=== PATIENT | female | born 1985 | race African-American/Black ===

== ENCOUNTER 2021-05-10 07:20 | Inpatient (IN) | payer BC ==
[2021-05-10 08:39] LABS: BASO % 0.4 % (0-2.0); EOS % 2.7 % (0-4.5); HEMATOCRIT 35.3 % (32.4-45.2); HEMOGLOBIN 11.9 GM/dL (10.7-15.3); LYMPH % 22.1 % (8-40); MCH 28.6 pg (25.7-33.7); MCHC 33.7 g/dl (32.0-36.0); MEAN CELL VOLUME 84.9 fl (80-96); MEAN PLT VOLUME 9.4 fl (7.5-11.1); MONO % 7.5 % (3.8-10.2); NEUT % 67.3 % (42.8-82.8); PLATELET COUNT 217 10^3/uL (134-434); RBC 4.15 M/mm3 (3.60-5.2); RDW 15.2 % (11.6-15.6); WHITE BLOOD COUNT 8.5 K/mm3 (4.0-10.0)
[2021-05-10 08:44] VITALS: BMI 30.2
[2021-05-10 08:46] LABS: INR 0.82 (0.83-1.09); PROTHROMBIN TIME (PATIENT) 10.1 SEC (9.7-13.0)
[2021-05-10 08:49] LABS: ACTIVATED PTT 24.6 SECONDS (25.2-36.5)
[2021-05-10] MEDS ORDERED: BUTORPHANOL TARTRATE 1 MG/ML VIAL IVPB PRN ×2 (08:54)
[2021-05-10 09:01] LABS: CREATININE 0.4 mg/dL (0.55-1.3)
[2021-05-10] MEDS ORDERED: DINOPROSTONE 10 MG VAGINAL SUPPOSITORY VG ONE (09:15)
[2021-05-10] MEDS ORDERED: BENZOCAINE 20% 57 GM BOTTLE TP PRN (11:24)
[2021-05-10] MEDS ORDERED: METHYLERGONOVINE MALEATE 0.2 MG/1 ML AMP IM PRN (11:24)
[2021-05-10] MEDS ORDERED: BENZOCAINE 28 GM HEMORRHOIDAL OINTMENT TP PRN (11:24)
[2021-05-10] MEDS ORDERED: SIMETHICONE 80 MG TAB.CHEW (FP) PO PRN (11:24)
[2021-05-10] MEDS ORDERED: IBUPROFEN 800 MG/8 ML IJ IVPB PRN (11:24)
[2021-05-10] MEDS ORDERED: oxyCODONE HCL 5 MG TABLET PO PRN (11:24)
[2021-05-10] MEDS ORDERED: ACETAMINOPHEN 325 MG TABLET (FP) PO PRN (11:24)
[2021-05-10] MEDS ORDERED: IBUPROFEN 600 MG TABLET (FP) PO PRN (11:24)
[2021-05-10] MEDS ORDERED: OXYTOCIN 20 UNITS in 0.9% NS 20 UNIT/1,000 ML INFUS.BAG IV SCH (11:30)
[2021-05-10 13:34] LABS: SYPHILIS W/ RPR CONF NON-REACTIVE (NONREACTIVE)
[2021-05-10 14:03] LABS: HIV INTERPRETATION NEGATIVE (NEGATIVE)
[2021-05-10] MEDS: ELECTROLYTE-148 SOLN 1,000 ML IV SCH ×2 (17:54→22:50)
[2021-05-10] MEDS ORDERED: CEFAZOLIN 1 GM/D5W 1 GM/50 ML BAG IVPB SCH (18:00)
[2021-05-10] MEDS ORDERED: OXYTOCIN 30 UNITS in 0.9% NS 30 UNIT/500 ML INFUS.BAG IVPB SCH (22:00)
[2021-05-10] MEDS ORDERED: FERROUS SO4 325 MG TABLET (FP) PO SCH (22:00)
[2021-05-10] MEDS ORDERED: OXYTOCIN 30 UNITS in 0.9% NS 30 UNIT/500 ML INFUS.BAG IVPB ONE (22:37)
[2021-05-11] MEDS: ELECTROLYTE-148 SOLN 1,000 ML IV SCH ×2 (04:15→11:54)
[2021-05-11] MEDS ORDERED: PRENATAL VITAMINS W/ FOLIC ACID TABLET (FP) PO SCH (10:00)
[2021-05-11] MEDS ORDERED: PCA PUMP NR ONE (10:46)
[2021-05-11] MEDS ORDERED: FENTANYL/BUPIVACAINE/NS/PF - PCEA - 50 ML DISP.SYRIN EP ONE ×2 (10:47→15:25)
[2021-05-11] MEDS: FENTANYL/BUPIVACAINE/NS/PF - PCEA - 50 ML DISP.SYRIN EP SCH ×2 (11:15→15:30)
[2021-05-11] MEDS ORDERED: oxyCODONE HCL 5 MG TABLET PO PRN (11:24)
[2021-05-11] MEDS ORDERED: BISACODYL 10 MG SUPP.RECT RC PRN ×2 (11:24→20:10)
[2021-05-11] MEDS ORDERED: NALOXONE HCL 0.4 MG/ML VIAL IVPUSH PRN (11:30)
[2021-05-11] MEDS ORDERED: BUPIVACAINE HCL/PF 0.25% (2.5MG/ML) 10 ML VIAL ONE (16:03)
[2021-05-11] MEDS ORDERED: LIDOCAINE HCL 1% PRESERVATIVE FREE - 30ML VIAL ONE (16:36)
[2021-05-11] MEDS ORDERED: OXYTOCIN 20 UNITS in 0.9% NS 20 UNIT/1,000 ML INFUS.BAG IV ONE ×2 (16:37→23:11)
[2021-05-11] MEDS ORDERED: ACETAMINOPHEN 325 MG TABLET (FP) PO PRN (20:10)
[2021-05-11] MEDS ORDERED: BENZOCAINE 20% 57 GM BOTTLE TP PRN (20:10)
[2021-05-11] MEDS ORDERED: BENZOCAINE 28 GM HEMORRHOIDAL OINTMENT TP PRN (20:10)
[2021-05-11] MEDS ORDERED: METHYLERGONOVINE MALEATE 0.2 MG/1 ML AMP IM PRN (20:10)
[2021-05-11] MEDS ORDERED: WITCH HAZEL 50% (TUCKS) 40 PAD/JAR PAD TP PRN (20:10)
[2021-05-11] MEDS ORDERED: IBUPROFEN 600 MG TABLET (FP) PO PRN (20:10)
[2021-05-11] MEDS ORDERED: OXYTOCIN 20 UNITS in 0.9% NS 20 UNIT/1,000 ML INFUS.BAG IV SCH (20:15)
[2021-05-12 06:50] LABS: BASO % 0.6 % (0-2.0); EOS % 0.2 % (0-4.5); HEMATOCRIT 34.5 % (32.4-45.2); HEMOGLOBIN 11.3 GM/dL (10.7-15.3); LYMPH % 9.8 % (8-40); MCH 28.3 pg (25.7-33.7); MCHC 32.7 g/dl (32.0-36.0); MEAN CELL VOLUME 86.3 fl (80-96); MEAN PLT VOLUME 10.5 fl (7.5-11.1); MONO % 6.6 % (3.8-10.2); NEUT % 82.8 % (42.8-82.8); PLATELET COUNT 195 10^3/uL (134-434); RBC 3.99 M/mm3 (3.60-5.2); RDW 15.2 % (11.6-15.6); WHITE BLOOD COUNT 18.4 K/mm3 (4.0-10.0)
[2021-05-12] MEDS: FERROUS SO4 325 MG TABLET (FP) PO SCH ×3 (09:20→17:28)
[2021-05-12] MEDS: PRENATAL VITAMINS W/ FOLIC ACID TABLET (FP) PO SCH (09:20)
[2021-05-12] MEDS ORDERED: SENNOSIDES/DOCUSATE COMBO (SENNA PLUS) TABLET (UD) PO PRN (22:00)
[2021-05-12] MEDS: FENTANYL/BUPIVACAINE/NS/PF - PCEA - 50 ML DISP.SYRIN EP SCH (22:41)
[2021-05-12 22:52] VITALS: TEMP 98.6
[2021-05-13] MEDS: FERROUS SO4 325 MG TABLET (FP) PO SCH ×2 (08:14→12:55)
[2021-05-13] MEDS: PRENATAL VITAMINS W/ FOLIC ACID TABLET (FP) PO SCH (09:08)
[2021-05-13 11:26] VITALS: BP 114/70; PULSE 88
== END 2021-05-13 13:20 | disposition home or self-care (01) | DRG 807 ==
LOC: JLDR 07:20 → J3W 05-11 23:22
PROVIDERS: ADMIT Obstetrics & Gynecology; ATTEND Obstetrics & Gynecology
PROC: 3E0P7VZ Introduction of Hormone into Female Reproductive, Via Natural or Artificial Opening (ICD-10-PCS; principal; 2021-05-10)
PROC: 10E0XZZ Delivery of Products of Conception, External Approach (ICD-10-PCS; 2021-05-11)
PROC: 10907ZC Drainage of Amniotic Fluid, Therapeutic from Products of Conception, Via Natural or Artificial Opening (ICD-10-PCS; 2021-05-11)
PROC: 0W8NXZZ Division of Female Perineum, External Approach (ICD-10-PCS; 2021-05-11)
DX: O48.0 Post-term pregnancy (principal); Z37.0 Single live birth; O69.81X0 Labor and delivery complicated by cord around neck, without compression, not applicable or unspecified; Z3A.40 40 weeks gestation of pregnancy
CPT/HCPCS: 36415; 59409; 71045-TC-FY; 80048; 85025; 85610; 85730; 86780; 86850; 86900; 86901; 87389

== ENCOUNTER 2024-02-09 06:10 | Inpatient (IN) | payer BC ==
[2024-02-09] MEDS ORDERED: LABETALOL HCL 200 MG TABLET (FP) ONE (06:52)
[2024-02-09] MEDS: LABETALOL HCL 200 MG TABLET (FP) PO PRN (06:53)
[2024-02-09] MEDS: ELECTROLYTE-148 SOLN 1,000 ML IV SCH (07:15)
[2024-02-09 08:02] LABS: BASO % 1.6 % (0-2.0); EOS % 1.1 % (0-4.5); HEMATOCRIT 38.1 % (32.4-45.2); HEMOGLOBIN 12.6 GM/dL (10.7-15.3); LYMPH % 20.6 % (8-40); MCH 28.4 pg (25.7-33.7); MCHC 33.1 g/dl (32.0-36.0); MEAN CELL VOLUME 85.7 fl (80-96); MEAN PLT VOLUME 9.4 fl (7.5-11.1); MONO % 7.6 % (3.8-10.2); NEUT % 69.1 % (42.8-82.8); PLATELET COUNT 249 10^3/uL (134-434); RBC 4.45 M/mm3 (3.60-5.2); RDW 14.3 % (11.6-15.6); WHITE BLOOD COUNT 8.9 K/mm3 (4.0-10.0)
[2024-02-09 08:09] LABS: ACTIVATED PTT 29.3 SECONDS (25.2-36.5); INR 0.85 (0.83-1.09); PROTHROMBIN TIME (PATIENT) 9.6 SEC (9.7-13.0)
[2024-02-09] MEDS ORDERED: NALOXONE HCL 0.4 MG/ML VIAL IVPUSH PRN (08:12)
[2024-02-09] MEDS ORDERED: FENTANYL/BUPIVACAINE/NS/PF - PCEA - 50 ML DISP.SYRIN EP ONE (08:14)
[2024-02-09] MEDS ORDERED: BUPIVACAINE HCL/PF 0.25% (2.5MG/ML) 10 ML VIAL ONE (08:19)
[2024-02-09 08:27] LABS: POTASSIUM 3.8 mmol/L (3.5-5.1)
[2024-02-09 08:30] LABS: CALCIUM 9.5 mg/dL (8.5-10.1)
[2024-02-09] MEDS: FENTANYL/BUPIVACAINE/NS/PF - PCEA - 50 ML DISP.SYRIN EP SCH (08:30)
[2024-02-09 08:31] LABS: BLOOD UREA NITROGEN 6.2 mg/dL (7-18)
[2024-02-09 08:34] LABS: CREATININE 0.3 mg/dL (0.55-1.3)
[2024-02-09] MEDS ORDERED: LIDO 2%/EPI 1:200000 PRESRVFRE (20 ML SDVIAL) ONE (09:03)
[2024-02-09] MEDS ORDERED: FENTANYL CITRATE/PF 50 MCG/ML VIAL ONE (09:03)
[2024-02-09 09:08] LABS: HIV INTERPRETATION NEGATIVE (NEGATIVE)
[2024-02-09 09:16] VITALS: BMI 32.3
[2024-02-09] MEDS ORDERED: OXYTOCIN 30 UNITS in 0.9% NS 30 UNIT/500 ML INFUS.BAG IVPB ONE (09:25)
[2024-02-09] MEDS: OXYTOCIN 30 UNITS in 0.9% NS 30 UNIT/500 ML INFUS.BAG IVPB SCH ×2 (09:30→12:28)
[2024-02-09] MEDS ORDERED: OXYTOCIN 20 UNITS in 0.9% NS 20 UNIT/1,000 ML INFUS.BAG IV ONE (12:31)
[2024-02-09] MEDS ORDERED: LIDOCAINE HCL 1% PRESERVATIVE FREE - 30ML VIAL ONE (12:58)
[2024-02-09] MEDS: OXYTOCIN 20 UNITS in 0.9% NS 20 UNIT/1,000 ML INFUS.BAG IV SCH ×2 (13:05→22:51)
[2024-02-09] MEDS ORDERED: oxyCODONE HCL 5 MG TABLET PO PRN ×2 (13:33→20:41)
[2024-02-09] MEDS ORDERED: WITCH HAZEL 50% (TUCKS) 40 PAD/JAR PAD TP PRN (13:33)
[2024-02-09] MEDS ORDERED: IBUPROFEN 600 MG TABLET (FP) PO PRN (13:33)
[2024-02-09] MEDS ORDERED: BISACODYL 10 MG SUPP.RECT RC PRN ×2 (13:33→20:41)
[2024-02-09] MEDS ORDERED: BENZOCAINE 20% 57 GM BOTTLE TP PRN (13:33)
[2024-02-09] MEDS ORDERED: ACETAMINOPHEN 325 MG TABLET (FP) PO PRN (13:33)
[2024-02-09] MEDS ORDERED: BENZOCAINE 28 GM HEMORRHOIDAL OINTMENT TP PRN (13:33)
[2024-02-09 13:38] LABS: CORD HCO3 25.2 mmHg (20-29); CORD PCO2 62.3 mmHg (30-78); CORD pH 7.225 (7.14-7.44)
[2024-02-09 13:39] LABS: CORD BASE EXCESS -2.7 mmol/L (0-2); CORD HCO3 22.7 mmHg (20-29); CORD PCO2 41.5 mmHg (30-78); CORD pH 7.356 (7.14-7.44)
[2024-02-09] MEDS: METHYLERGONOVINE MALEATE 0.2 MG/1 ML AMP IM PRN (14:15)
[2024-02-09] MEDS ORDERED: TRANEXAMIC ACID 1000 MG/10 ML VIAL ONE (14:50)
[2024-02-09] MEDS: TRANEXAMIC ACID 1000 MG/10 ML VIAL IVPUSH ONE (14:56)
[2024-02-09] MEDS ORDERED: MISOPROSTOL 200 MCG TABLET ONE (15:05)
[2024-02-09] MEDS: MISOPROSTOL 200 MCG TABLET PR ONE (15:10)
[2024-02-09] MEDS ORDERED: ONDANSETRON 4 MG/2 ML VIAL IVPB PRN (15:26)
[2024-02-09 15:52] LABS: BASO % 0.3 % (0-2.0); EOS % 0.2 % (0-4.5); HEMATOCRIT 35.6 % (32.4-45.2); HEMOGLOBIN 11.3 GM/dL (10.7-15.3); LYMPH % 13.1 % (8-40); MCH 27.4 pg (25.7-33.7); MCHC 31.8 g/dl (32.0-36.0); MEAN CELL VOLUME 86.1 fl (80-96); MEAN PLT VOLUME 9.6 fl (7.5-11.1); MONO % 5.4 % (3.8-10.2); PLATELET COUNT 251 10^3/uL (134-434); RBC 4.13 M/mm3 (3.60-5.2); RDW 14.3 % (11.6-15.6); WHITE BLOOD COUNT 12.4 K/mm3 (4.0-10.0)
[2024-02-09] MEDS ORDERED: ACETAMINOPHEN INJECTION 100 ML IVPB ONE (17:14)
[2024-02-09] MEDS: ACETAMINOPHEN 1000 MG/100 ML BAG IVPB PRN (17:15)
[2024-02-09] MEDS ORDERED: FERROUS SO4 325 MG TABLET (FP) PO SCH (17:30)
[2024-02-09] MEDS: LABETALOL HCL 200 MG TABLET (FP) PO ONE (19:45)
[2024-02-09] MEDS ORDERED: METHYLERGONOVINE MALEATE 0.2 MG/1 ML AMP IM PRN (20:41)
[2024-02-09 22:45] LABS: BASO % 0.1 % (0-2.0); EOS % 0.8 % (0-4.5); HEMATOCRIT 32.6 % (32.4-45.2); HEMOGLOBIN 10.8 GM/dL (10.7-15.3); MCH 28.3 pg (25.7-33.7); MCHC 33.2 g/dl (32.0-36.0); MEAN CELL VOLUME 85.5 fl (80-96); MEAN PLT VOLUME 8.6 fl (7.5-11.1); MONO % 8.3 % (3.8-10.2); NEUT % 73.8 % (42.8-82.8); PLATELET COUNT 213 10^3/uL (134-434); RBC 3.82 M/mm3 (3.60-5.2); RDW 14.1 % (11.6-15.6); WHITE BLOOD COUNT 15.1 K/mm3 (4.0-10.0)
[2024-02-10 02:07] VITALS: RESP 18
[2024-02-10 07:30] LABS: BASO % 0.3 % (0-2.0); EOS % 1.1 % (0-4.5); HEMOGLOBIN 10.3 GM/dL (10.7-15.3); LYMPH % 16.8 % (8-40); MCH 28.5 pg (25.7-33.7); MCHC 33.4 g/dl (32.0-36.0); MEAN CELL VOLUME 85.3 fl (80-96); MEAN PLT VOLUME 9.1 fl (7.5-11.1); MONO % 7.3 % (3.8-10.2); NEUT % 74.5 % (42.8-82.8); PLATELET COUNT 199 10^3/uL (134-434); RBC 3.63 M/mm3 (3.60-5.2); RDW 13.9 % (11.6-15.6); WHITE BLOOD COUNT 13.9 K/mm3 (4.0-10.0)
[2024-02-10] MEDS: FERROUS SO4 325 MG TABLET (FP) PO SCH (08:55)
[2024-02-10] MEDS: PRENATAL VITAMINS W/ FOLIC ACID TABLET (FP) PO SCH (09:55)
[2024-02-10] MEDS: DIPHTH,PERTUSS(ACELL),TET 0.5 ML DISP.SYRIN IM ONE (09:55)
[2024-02-10] MEDS: AMOX TR/POT CLAV 500MG/125MG TABLETS (FP) PO SCH (09:58)
[2024-02-10] MEDS ORDERED: PRENATAL VITAMINS W/ FOLIC ACID TABLET (FP) PO SCH (10:00)
[2024-02-10] MEDS: ACETAMINOPHEN 325 MG TABLET (FP) PO PRN (10:07)
[2024-02-10 20:58] VITALS: TEMP 98.7
[2024-02-10] MEDS: BENZOCAINE 20% 57 GM BOTTLE TP PRN (21:32)
[2024-02-10] MEDS: BENZOCAINE 28 GM HEMORRHOIDAL OINTMENT TP PRN (21:32)
[2024-02-10] MEDS: WITCH HAZEL 50% (TUCKS) 40 PAD/JAR PAD TP PRN (21:33)
[2024-02-10] MEDS ORDERED: SENNOSIDES/DOCUSATE COMBO (SENNA PLUS) TABLET (UD) PO PRN ×2 (22:00)
[2024-02-11 10:36] VITALS: BP 125/80; PULSE 99
== END 2024-02-11 13:15 | disposition home or self-care (01) | DRG 807 ==
LOC: JDEL 06:10 → JLDR 06:45 → J3W 18:03
PROVIDERS: ADMIT Obstetrics & Gynecology; ATTEND Obstetrics & Gynecology
PROC: 0W8NXZZ Division of Female Perineum, External Approach (ICD-10-PCS; principal; 2024-02-09)
PROC: 10E0XZZ Delivery of Products of Conception, External Approach (ICD-10-PCS; 2024-02-09)
PROC: 30233N1 Transfusion of Nonautologous Red Blood Cells into Peripheral Vein, Percutaneous Approach (ICD-10-PCS; 2024-02-09)
DX: O13.4 Gestational [pregnancy-induced] hypertension without significant proteinuria, complicating childbirth (principal); Z37.0 Single live birth; O69.81X0 Labor and delivery complicated by cord around neck, without compression, not applicable or unspecified; O72.2 Delayed and secondary postpartum hemorrhage; Z3A.39 39 weeks gestation of pregnancy
CPT/HCPCS: 36415; 36430; 36600; 59409; 80048; 82803; 85025; 85610; 85730; 86780; 86803; 86850; 86900; 86901; 86922; 87389; 90715; J0131; P9058